=== PATIENT | male | born 1980 | race Caucasian/White ===

== ENCOUNTER → 2023-09-29 13:13 | Outpatient (REF) | payer OTHER, SELFPAY | LOC: HWRAD 13:13 | PROVIDERS: ATTENDING PHYSICIAN Student in an Organized Health Care Education/Training Program | DX: M25.561 Pain in right knee (principal) | CPT/HCPCS: 73564 ==

== ENCOUNTER 2024-06-11 09:42 | Emergency (ER) | payer OTHER, SELFPAY ==
[2024-06-11 09:44] VITALS: BP 121/84
--- NOTE | 2024-06-11 10:25 | ED.GENMED ---
History of Present Illness
General
Chief Complaint: Fainting/Passed Out
Source: patient
Exam Limitations: none
Time Seen by Provider: 06/11/24 09:56
Nursing documentation reviewed up to this point in time: agreed with
History of Present Illness
History of Present Illness:
Patient is a 44-year-old male with past medical history of anxiety, alcohol abuse(sober for 16 months) who presents to the ER for evaluation. Patient has a history of anxiety reports last night he was getting dressed going to date standing in his
bathroom was very anxious and felt lightheaded like he was going to pass out and then woke up on the floor. He got himself together reports he did go on his date. Patient came home slept normally but today has a headache feels foggy. He is not
on blood thinners.he has mild headache. He had no chest pain or shortness of breath prior to episode.
It is documented in triage the patient weaned off his anxiety medicine. Patient weaned off of his clonazepam however that was over a month ago along with his Paxil. Patient denies any inner oral abrasions or lacerations. He had no incontinence of
urine after episode.
Review of Systems
Review of Systems
Allergies reviewed?: Yes
All Other Systems: ROS reviewed and negative except as documented in HPI and ROS
Constitutional: Reports no symptoms
Respiratory: Reports no symptoms
Cardiac: Reports syncope; Denies chest pain, diaphoresis or palpitations
ABD/GI: Reports no symptoms
: Reports no symptoms
Musculoskeletal: Reports no symptoms
Skin: Reports no symptoms
Neurological: Reports headache and other (feels foggy )
Psychiatric: Reports no symptoms
Phy Exam
General Physical Exam
General Presentation: no apparent distress
General age: appears stated age
General Skin: warm and dry
General Habitus: normal
General Mental: alert
General Hydration: appears well hydrated
Cardiovascular Exam
Cardiovascular Exam: regular rate/rhythm, no murmur and normal peripheral pulses
Pulmonary Exam
Pulmonary Exam: lungs clear and no respiratory distress
Neurological Exam
Neurological Exam: alert and oriented x3
Musculoskeletal Exam
Musculoskeletal Exam: full ROM
Skin Exam
Skin Exam: normal color, warm/dry and other (Small abrasion to posterior occiput no hematoma)
Psychiatric Exam
Psychiatric Exam: normal mood/affect
Course
Orders/Labs/Results
Orders:
Orders
06/11/24 10:37
Electrocardiogram (*1) Stat
Reason for Study: Other
Other Reason for Exam: chest pain
CT Head W/o Iv Contrast Urgent
Comment:
Reason For Exam: trauma/syncope
EKG- Treatment ONCE
IV Insert/Care/Rem.- Treatment PRN
0.9% Sodium Chloride 1000 ml [Nss] 1,000 ml IV BOLUS
06/11/24 10:47
Complete Blood Count/With Diff Urgent
Comprehensive Metabolic Panel Urgent
06/11/24 12:45
Tetanus/Diphth/Acelpertussis [Adacel] 0.5 ml IM .ONCE ONE
Abnormal Lab Results
06/11/24
10:47
RBC 4.37 L 10^6/uL
(4.70-6.10)
Hct 38.4 L %
(39.0-52.0)
Absolute Lymphs (auto) 0.7 L 10^3/uL
(1.2-3.4)
Neutrophils % 79.4 H %
(42.2-75.2)
Lymphocytes % 11.8 L %
(20.5-51.1)
Carbon Dioxide 31 H mmol/L
(22-30)
Glucose 106 H mg/dl
(70-99)
06/11/24 10:47
06/11/24 10:47
Vital Signs
Initial and Last Documented VS:
Initial Vital Signs
Temp Pulse BP Pulse Ox
98.4 F 82 121/84 99
06/11/24 09:44 06/11/24 09:44 06/11/24 09:44 06/11/24 09:44
Last Documented Vital Signs
Temp Pulse Resp BP Pulse Ox
98.4 F 69 16 121/84 99
06/11/24 09:44 06/11/24 12:00 06/11/24 12:00 06/11/24 09:44 06/11/24 12:00
MDM/Problems Addressed
Differential Diagnosis Includes:
Not limited to syncope, dehydration, head injury concussion
MDM/Problems Addressed:
Patient has syncopal episode yesterday. Standing in the bathroom he did feel dizzy and lightheaded. He got himself up was able to go on a date last night went to sleep normally but today felt foggy. He presents awake alert no acute distress
normal neurologic exam he is on a blood thinners. CT head negative. No acute findings and EKG. Patient weaned off of his antianxiety medication however that was over a month ago patient felt dizzy and lightheaded prior to episode seizure
considered but not likely. No oral laceration. He had no incontinence of urine at the time. Small abrasion to head labs unremarkable. Tetanus updated patient has been stable here in the ER he was hydrated. Will DC with outpatient follow-up with
family doctor
*Radiology
Radiology exam reviewed: radiology read reviewed
*Pulse Oximetry
Patient hypoxic: no
*EKG
Interpreted by ED Provider?: Yes
Interpretation: normal
Comparison EKG: no comparison EKG present
Heart Rate: 71
Rate: normal
Rhythm: sinus
*Critical Care Note
Total Time (30-74mins, 75-104mins- exclusive of procedures): Not Applicable
ED Attending Note
-
Portions of this chart may have been created with voice recognition software.� Occasional wrong word or��sound alike� substitutions may have occurred due to the inherent limitations of voice recognition software.
Discharge Plan
Departure
Patient Disposition: Home (Routine Discharge)
Date of Disposition: 06/11/24
Time of Disposition: 12:48
Patient with high blood pressure during this ER visit?: No
Condition: Fair
Covid-19: Not Applicable
Discharge Problem:
Syncope
Instructions: Syncope (Fainting) (DC), Abrasions - ED discharge instructions
Referrals:
NONE,* [Family Provider] -
Stand Alone Forms: Return to Work
Activity Restrictions/Additional Instructions:
As discussed stay well-hydrated. Closely follow-up with family doctor in the next several days and return if any worsening of symptoms.
Interventions
Interventions:
*Risk Screen - Suicide Last Done: 06/11/24 09:46
*General Assessment Last Done: 06/11/24 09:46
*Neglect/Abuse Screening Last Done: 06/11/24 09:46
ED- Fall Risk Assessment Last Done: 06/11/24 10:25
ED- Cardiac Assessment Last Done: 06/11/24 10:25
ED- Neurological Assessment Last Done: 06/11/24 10:25
Discharge Date and Time
Print Language: QATARI
[2024-06-11] MEDS: NSS 1000 IV (10:48)
[2024-06-11 10:51] VITALS: BMI 28.7
[2024-06-11 11:04] LABS: % Basophils 0.2 % (0-2); % Eosinophils 0.5 % (0-6); % Immature Granulocytes 0.3 % (0-0.5); % Lymphocytes 11.8 % (20.5-51.1); % Monocytes 7.8 % (1.7-9.3); % Neutrophils 79.4 % (42.2-75.2); Absolute Lymphocytes 0.7 10^3/uL (1.2-3.4); Absolute Monocytes 0.5 10^3/uL (0.1-0.6); Hematocrit 38.4 % (39.0-52.0); Hemoglobin 13.5 g/dL (13.0-18.0); Mean Corp Hgb Conc. 35.2 g/dL (33.0-37.0); Mean Corpuscular Hgb 30.9 pg (27.0-31.0); Mean Corpuscular Volume 87.9 fL (80.0-94.0); Mean Platelet Volume 8.7 fL (7.4-10.4); Nucleated Red Blood Cells % 0 % (-); Platelet Count 287 10^3/uL (130-400); Red Blood Cell Count 4.37 10^6/uL (4.70-6.10); Red Cell Dist. Width 12.7 % (11.5-14.5); White Blood Cell Count 6.3 10^3/uL (4.8-10.8)
[2024-06-11 11:15] LABS: ALT (SGPT) 24 U/L (0-50); AST (SGOT) 26 U/L (17-59); Albumin 4.4 g/dl (3.5-5.0); Alkaline Phosphatase 83 U/L (38-126); Blood Urea Nitrogen 10 mg/dl (9-20); Carbon Dioxide 31 mmol/L (22-30); Chloride 101 mmol/L (98-107); Estimated Creatinine Clearance > 125 ml/min; Glucose 106 mg/dl (70-99); Potassium 4.4 mmol/L (3.5-5.1); Sodium 140 mmol/L (135-145); Total Bilirubin 0.2 mg/dl (0.2-1.3); Total Protein 6.9 g/dl (6.3-8.2); eGFR > 60.00
[2024-06-11] MEDS: ADACEL 0.5 ML IM (12:48)
[2024-06-11 12:58] VITALS: BP 126/79
== END 2024-06-11 12:59 | disposition home or self-care (01) ==
LOC: EMR 09:42
PROVIDERS: Nurse Practitioner; EMERGENCY PHYSICIAN Emergency Medicine
DX: R55 Syncope and collapse (principal); S00.01XA Abrasion of scalp, initial encounter; W19.XXXA Unspecified fall, initial encounter; Z23 Encounter for immunization
CPT/HCPCS: 90471; 99284; 70450; 80053; 85025; 90715; 93005